=== PATIENT | female | born 1965 | race Caucasian/White ===

== ENCOUNTER → 2017-03-07 | Outpatient (CLI) | payer BC ==
[~2017-03-07] MED LIST: ASPI325T45 PO; CIPR-255 PO; FLNIN/ NAE; LEVO112T4 PO; LEVO125T5 PO; TRMCR130WC TOP
--- NOTE | 2017-03-07 13:27 | MAMMOGRAPHY REPORT ---
BILATERAL DIGITAL SCREENING MAMMOGRAM TOMOSYNTHESIS WITH CAD: 03/07/2017 CLINICAL HISTORY: Routine screening. Patient has no complaints. TECHNIQUE: Breast tomosynthesis in addition to standard 2D mammography was performed. Current study was also evaluated with a Computer Aided Detection (CAD) system. COMPARISON: Comparison is made to exams dated: 03/01/2016 mammogram and 02/20/2015 mammogram - [facility]. Also prior outside mammograms dated 12/28/2010 and 12/25/2009. BREAST COMPOSITION: There are scattered areas of fibroglandular density in both breasts. FINDINGS: No suspicious masses, calcifications, or areas of architectural distortion are noted in ei ther breast. There has been no significant interval change compared to prior exams. IMPRESSION: ACR BI-RADS CATEGORY 1: NEGATIVE There is no mammographic evidence of malignancy. A 1 year screening mammogram is recommended. The pa tient will receive written notification of the results. Approximately 10% of breast cancers are not detected with mammography. A negative mammographic report should not delay biopsy if a clinically suggestive mass is present. Nayely Pond M.D. ah/:03/07/2017 09:15:04 Inker Machine: Negro GARCIA(R)(M), [facility] letter sent: Normal 1/2 BI-RADS Code: ACR BI-RADS Category 1: Negative
== END | disposition home or self-care (01) ==
LOC: C.MAMM 08:34
PROVIDERS: ATTEND Family Medicine
DX: Z12.31 Encounter for screening mammogram for malignant neoplasm of breast (principal)

== ENCOUNTER 2017-04-28 18:34 | Emergency (ER) | payer BC ==
[~2017-04-28] VITALS: Ht 160 cm; Wt 76.0 kg
[~2017-04-28 18:34] MED LIST changes: -CIPR-255 PO; -FLNIN/ NAE; -LEVO125T5 PO; -TRMCR130WC TOP
[2017-04-28 18:35] VITALS: Ht 160 cm; Wt 76.0 kg
[2017-04-28] MEDS ORDERED: SODIUM CHLORIDE 0.9% 1000ML 1,000 ML IV STA (18:46)
[2017-04-28] MEDS ORDERED: ONDANSETRON 8 MG/54 ML D5W IV STA (18:55)
[2017-04-28] MEDS ORDERED: OPTIRAY 320 IV PRN (19:15)
[2017-04-28] MEDS ORDERED: LEVO125T4 PO (19:16)
[2017-04-28] MEDS ORDERED: TRMCR130WC TOP (19:16)
[2017-04-28] MEDS ORDERED: FLNIN/ NAE (19:16)
[2017-04-28] MEDS ORDERED: HYDROmorphone INJ 0.5 MG/0.5 ML SYR IV STA (19:32)
[2017-04-28 20:01] LABS: BASO % 0.3 %; BASO ABS # 0.02 K/uL (0-0.2); COMPLETE YES; EOS % 0.1 %; HEMATOCRIT 41.6 % (37-47); IG% 0.3 %; LYMPH % 20.9 %; MEAN CORPUSCULAR HGB CONC 34.4 g/dl (32-36); MEAN PLATELET VOLUME 9.8 fL (7.4-10.4); MONO % 4.3 %; NEUT % 74.1 %; PLATELET COUNT 276 K/uL (130-400); RED BLOOD COUNT 4.62 M/uL (4.2-5.4); WHITE BLOOD COUNT 7.18 K/uL (4.8-10.8)
[2017-04-28 20:08] LABS: URINE APPEARANCE CLOUDY (CLEAR); URINE BILIRUBIN NEG (NEG); URINE COLOR YELLOW; URINE NITRITE NEG (NEG); URINE SPECIFIC GRAVITY 1.016 (1.000-1.030); UROBILINOGEN NEG (NEG); ZZUR CULT IF INDIC CLEAN CATCH YES
[2017-04-28 20:09] LABS: MANUAL MICROSCOPIC REQUIRED? NO; REVIEW REQ? NO
[2017-04-28 20:18] LABS: BUN/CREATININE RATIO 15.6 (10-20); CALCIUM 9.9 mg/dl (8.5-10.1); CREATININE 0.83 mg/dl (0.60-1.20); POTASSIUM 3.9 mmol/L (3.5-5.1)
[2017-04-28 20:20] LABS: PREG INTERNAL NEGATIVE QC NEG CLEAR BACKGROUND; PREG INTERNAL POSITIVE QC POS CONTROL LINE
--- NOTE | 2017-04-28 21:06 | DIAGNOSTIC IMAGING REPORT ---
ABD/PELVIS IV CONTRAST ONLY CT DOSE: 324.98 mGy.cm HISTORY: Pain. Nausea. upper abd pain, vomiting TECHNIQUE: Multiaxial CT images of the abdomen and pelvis were performed following the use of intravenous contrast. A dose lowering technique was utilized adhering to the principles of ALARA. COMPARISON STUDY: None. FINDINGS: Lung bases are clear. Liver spleen and pancreas enhance uniformly. Kidneys negative for hydronephrosis. The bowel pattern is nonobstructive. Subtle wall edema of the colon with a trace amount of pericolonic infiltrative change. Suggests a low-grade colitis. There is no evidence for abscess collection or obstruction. Bladder is midline. There are several small reactive abdominal as well as inguinal nodes. Significant or bulky adenopathy is not appreciated. IMPRESSION: 1. Mild nonspecific colitis. 2. No evidence for abscess collection or obstruction. 3. Study is otherwise negative. 4. Normal appendix. The above report was generated using voice recognition software. It may contain grammatical, syntax or spelling errors. Electronically signed by: Serge Real M.D. 04/28/2017 9:05 PM Dictated Date/Time: 04/28/2017 9:02 PM
[2017-04-28] MEDS ORDERED: CIPROFLOXACIN 500 MG TAB PO STA (21:44)
[2017-04-28] MEDS ORDERED: OXYCODONE IR HOME PACK PO ONE (21:45)
[2017-04-28] MEDS ORDERED: ONDANSETRON HOME PACK 4MG OD TAB PO ONE (21:45)
[2017-04-28] MEDS ORDERED: KETOROLAC TROMETHAMINE 30 MG/ML VIAL IV STA (21:47)
[2017-04-28] MEDS ORDERED: CIPR-255 PO (21:50)
[2017-04-28 22:35] VITALS: BP 127/81; PULSE 67; TEMP 36.5; O2SAT 99
--- NOTE | 2017-04-29 00:57 | EMERGENCY ROOM VISIT NOTE ---
History Report prepared by Mahi: Jossie Ma Under the Supervision of: Dr. John Meadows M.D. First contact with patient: 18:42 Chief Complaint: ABDOMINAL PAIN Stated Complaint: VOMITING, ABDOMINAL PAIN Nursing Triage Summary: pt to the ED with c/o back and abd pain over the weekend with n/v and states she is having a gallbladder attack History of Present Illness The patient is a 51 year old female who presents to the Emergency Room with complaints of intermittent diffuse abdominal pain that began three days ago. She currently rates her discomfort as a 3/10 in severity. The patient states that on Friday she developed a dull right lower quadrant abdominal pain that persisted throughout the day, but was resolved once she went to bed. She states that yesterday she developed diffuse pain throughout her abdomen and back. The patient states that today she took three bites of her dinner and vomited. She states that she has had six episodes of emesis. The patient states that she must wear a bullet proof vest for work and states that she cannot wear that or her bra without pain. She states that she has been feeling fuzzy today and states that she had a difficult time driving home. The patient states that she becomes immediately nauseous upon eating or drinking. She additionally reports a headache and constipation. The patient also notes some dysuria but denies any flank pain. The patient states that over the past two days she has been feeling fatigued. She states that her pain is worsened with bending of the abdomen, but is alleviated with rest. The patient describes her pain as a pressure at this time. Pt denies LOC, fevers, chills, diaphoresis, visual changes, neck pain, chest pain, breathing difficulties, melena, hematochezia, numbness, weakness, lymphadenopathy, rash, or other complaints. Source of History: patient Onset: three days ago Position: abdomen (diffuse) Symptom Intensity: 3/10 Quality: pressure, dull Timing: intermittent Modifying Factors (Worsening): other (bending abdomen) Modifying Factors (Relieving): rest Associated Symptoms: + headache, + nausea, + vomiting, + fatigue Note: Associated Symptoms: feeling fuzzy, constipation Review of Systems See HPI for pertinent positives and negatives. A total of ten systems were reviewed and were otherwise negative. Past Medical & Surgical Medical Problems: (1) Graves' disease (2) Pure Hypercholesterolem Surgical Problems: (1) S/P JONO-BSO Family History Cancer Diabetes mellitus Gallbladder disease Heart disease Hypertension Lung disease Social History Smoking Status: Never Smoker Marital Status: Housing Status: lives with significant other Occupation Status: employed Current/Historical Medications Scheduled Ciprofloxacin Hcl (Cipro), 500 MG PO BID Fluticasone Propionate (Fluticasone Propionate), 2 SPRAYS IVÁN PRN Levothyroxine Sodium (Levothyroxine Sodium), 125 MCG PO DAILY Triamcinolone Acet (Aristocort 0.1%), 1 APPLN TOP PRN Allergies Coded Allergies: Amoxicillin (Verified Allergy, Severe, ITCHY, RASH, 04/28/17) Peanut-containing Drug Products (Verified Allergy, Unknown, RESP PROBLEMS FROM PEANUT BUTTER, 04/28/17) Physical Exam Vital Signs Date Time Temp Pulse Resp B/P (MAP) Pulse Ox O2 Delivery O2 Flow Rate FiO2 04/28/17 22:35 36.5 67 20 127/81 99 04/28/17 21:32 72 20 124/81 94 Room Air 04/28/17 20:28 48 04/28/17 19:50 56 20 121/77 98 Room Air 04/28/17 18:35 36.5 71 16 156/72 95 Room Air Physical Exam GENERAL: Awake, alert, well-appearing, in no distress HENT: Normocephalic, atraumatic. Oropharynx unremarkable. EYES: Normal conjunctiva. Sclera non-icteric. NECK: Supple. No nuchal rigidity. FROM. No JVD. RESPIRATORY: Clear to auscultation. CARDIAC: Regular rate, normal rhythm. Extremities warm and well perfused. Pulses equal. ABDOMEN: Soft, non-distended. Minimal right and left lower quadrant tenderness and moderate epigastric tenderness to palpation. No rebound or guarding. No masses. RECTAL: Deferred. MUSCULOSKELETAL: Chest examination reveals no tenderness. The back is symmetrical on inspection without obvious abnormality. There is no CVA tenderness to palpation. No joint edema. LOWER EXTREMITIES: Calves are equal size bilaterally and non-tender. No edema. No discoloration. NEURO: Normal sensorium. No sensory or motor deficits noted. SKIN: No rash or jaundice noted. Medical Decision & Procedures ER Provider Diagnostic Interpretation: CT: Radiology results as stated below per my review and radiologist interpretation ABD/PELVIS IV CONTRAST ONLY CT DOSE: 324.98 mGy.cm HISTORY: Pain. Nausea. upper abd pain, vomiting TECHNIQUE: Multiaxial CT images of the abdomen and pelvis were performed following the use of intravenous contrast. A dose lowering technique was utilized adhering to the principles of ALARA. COMPARISON STUDY: None. FINDINGS: Lung bases are clear. Liver spleen and pancreas enhance uniformly. Kidneys negative for hydronephrosis. The bowel pattern is nonobstructive. Subtle wall edema of the colon with a trace amount of pericolonic infiltrative change. Suggests a low-grade colitis. There is no evidence for abscess collection or obstruction. Bladder is midline. There are several small reactive abdominal as well as inguinal nodes. Significant or bulky adenopathy is not appreciated. IMPRESSION: 1. Mild nonspecific colitis. 2. No evidence for abscess collection or obstruction. 3. Study is otherwise negative. 4. Normal appendix. The above report was generated using voice recognition software. It may contain grammatical, syntax or spelling errors. Electronically signed by: Serge Real M.D. 04/28/2017 9:05 PM Dictated Date/Time: 04/28/2017 9:02 PM Laboratory Results 04/28/17 19:40 Red Blood Count 4.62, Mean Corpuscular Volume 90.0, Mean Corpuscular Hemoglobin 31.0, Mean Corpuscular Hemoglobin Concent 34.4, Mean Platelet Volume 9.8, Neutrophils (%) (Auto) 74.1, Lymphocytes (%) (Auto) 20.9, Monocytes (%) (Auto) 4.3, Eosinophils (%) (Auto) 0.1, Basophils (%) (Auto) 0.3, Neutrophils # (Auto) 5.32, Lymphocytes # (Auto) 1.50, Monocytes # (Auto) 0.31, Eosinophils # (Auto) 0.01, Basophils # (Auto) 0.02 04/28/17 19:40 Test 04/28/17 19:40 White Blood Count 7.18 K/uL (4.8-10.8) Red Blood Count 4.62 M/uL (4.2-5.4) Hemoglobin 14.3 g/dL (12.0-16.0) Hematocrit 41.6 % (37-47) Mean Corpuscular Volume 90.0 fL (80-100) Mean Corpuscular Hemoglobin 31.0 pg (25-34) Mean Corpuscular Hemoglobin Concent 34.4 g/dl (32-36) Platelet Count 276 K/uL (130-400) Mean Platelet Volume 9.8 fL (7.4-10.4) Neutrophils (%) (Auto) 74.1 % Lymphocytes (%) (Auto) 20.9 % Monocytes (%) (Auto) 4.3 % Eosinophils (%) (Auto) 0.1 % Basophils (%) (Auto) 0.3 % Neutrophils # (Auto) 5.32 K/uL (1.4-6.5) Lymphocytes # (Auto) 1.50 K/uL (1.2-3.4) Monocytes # (Auto) 0.31 K/uL (0.11-0.59) Eosinophils # (Auto) 0.01 K/uL (0-0.5) Basophils # (Auto) 0.02 K/uL (0-0.2) RDW Standard Deviation 42.3 fL (36.4-46.3) RDW Coefficient of Variation 12.8 % (11.5-14.5) Immature Granulocyte % (Auto) 0.3 % Immature Granulocyte # (Auto) 0.02 K/uL (0.00-0.02) Urine Color YELLOW Urine Appearance CLOUDY (CLEAR) Urine pH 8.0 (4.5-7.5) Urine Specific [place] 1.016 (1.000-1.030) Urine Protein NEG (NEG) Urine Glucose (UA) NEG (NEG) Urine Ketones NEG (NEG) Urine Occult Blood 1+ (NEG) Urine Nitrite NEG (NEG) Urine Bilirubin NEG (NEG) Urine Urobilinogen NEG (NEG) Urine Leukocyte Esterase MODERATE (NEG) Urine WBC (Auto) 10-30 /hpf (0-5) Urine RBC (Auto) 10-30 /hpf (0-4) Urine Hyaline Casts (Auto) 1-5 /lpf (0-5) Urine Epithelial Cells (Auto) 5-10 /lpf (0-5) Urine Bacteria (Auto) 2+ (NEG) Anion Gap 8.0 mmol/L (3-11) Est Creatinine Clear Calc Drug Dose 77.4 ml/min Estimated GFR () 94.0 Estimated GFR (Non- 81.1 BUN/Creatinine Ratio 15.6 (10-20) Calcium Level 9.9 mg/dl (8.5-10.1) Total Bilirubin 0.5 mg/dl (0.2-1) Direct Bilirubin 0.1 mg/dl (0-0.2) Aspartate Amino Transf (AST/SGOT) 30 U/L (15-37) Alanine Aminotransferase (ALT/SGPT) 67 U/L (12-78) Alkaline Phosphatase 107 U/L (45-117) Total Protein 8.0 gm/dl (6.4-8.2) Albumin 4.2 gm/dl (3.4-5.0) Lipase 101 U/L (73-393) Human Chorionic Gonadotropin, Qual NEG (NEG) Laboratory results reviewed by me Medications Administered Medications (Trade) Dose Ordered Sig/Steven Route Start Time Stop Time Status Last Admin Dose Admin Sodium Chloride 1,000 ml @ 999 mls/hr Q1H1M STAT IV 04/28/17 18:46 04/28/17 19:46 DC 04/28/17 19:49 999 MLS/HR Ondansetron HCl (Zofran 8mg Iv) 8 mg NOW STAT IV 04/28/17 18:55 04/28/17 18:57 DC 04/28/17 19:49 8 MG Hydromorphone HCl (Dilaudid Inj) 0.5 mg NOW STAT IV 04/28/17 19:32 04/28/17 19:33 DC 04/28/17 19:32 0.5 MG Ciprofloxacin (Cipro Tab) 500 mg NOW STAT PO 04/28/17 21:44 04/28/17 21:47 DC 04/28/17 22:01 500 MG Ondansetron HCl (ZOFRAN ODT 4MG Home Pack) 1 homepack UD ONCE PO 04/28/17 21:45 04/28/17 21:47 DC 04/28/17 22:02 1 HOMEPACK Oxycodone HCl (Roxicodone Immediate Rel 5MG Home Pack) 1 homepack UD ONCE PO 04/28/17 21:45 04/28/17 21:47 DC 04/28/17 22:02 1 HOMEPACK Ketorolac Tromethamine (Toradol Inj) 30 mg NOW STAT IV 04/28/17 21:47 04/28/17 21:48 DC 04/28/17 22:01 30 MG ED Course 1843: The patient was evaluated in room B3B. A complete history and physical exam was performed by the medical student. 1845: Ordered Sodium Chloride 1000 ml @ 999 mls/hr IV. 1854: Ordered Zofran 8 mg IV. 1903: The patient was evaluated in room B3B. A complete history and physical exam was performed. 1931: Ordered Dilaudid Inj 0.5 mg IV. 2141: I reevaluated the patient and she is resting comfortably. I discussed the exam findings with her and I discussed the treatment plan. She verbalized complete understanding and agreement. She is ready to go home shortly. 2143: Ordered Cipro Tab 500 mg PO, Oxycodone HCl 1 homepack PO, Ondansetron HCl 1 homepack PO. 2146: Ordered Toradol Inj 30 mg IV. Medical Decision Medication Reconciliation: I attest that I have personally reviewed the patient' s current medication list Blood pressure screening: Patient was found to have an elevated blood pressure and was referred to their primary doctor for recheck and further treatment. Triage Nursing notes reviewed. The patient's presentation and history were concerning for abdominal pain. Etiologies such as appendicitis, diverticulitis, obstruction, inflammatory bowel disease, renal colic, PUD, biliary pathology, pancreatitis, mesenteric ischemia, aortic pathology, infections, genitourinary, UTI, perforated viscus, as well as others were entertained. Pain was evaluated. She was hydrated. She is given Zofran and a dose of Dilaudid. She felt significantly better with this. Her blood work was unremarkable. Urine test was concerning for infection. She was started on Cipro for this. CT imaging revealed a colitis although it was mild. The patient is doing well. She will be followed up closely as an outpatient. She has an appointment tomorrow with her primary physician. She will continue Cipro for the urinary tract infection and she will discuss further management with her primary physician. She may need GI referral if things do not clear up. She worsens in any way she will be back. I gave my usual and customary discussion regarding this issue. By the evaluation outlined above other emergent etiologies such as those listed in the differential, as well as others, were deemed relatively unlikely. The patient was educated about the findings as listed above. All questions were answered and the patient was pleased with the treatment. Return instructions were outlined and the patient was discharged in stable condition. The patient was referred to her PCP for follow-up for a recheck of the current condition. Impression Primary Impression: Colitis Additional Impressions: Generalized abdominal pain UTI (urinary tract infection) Scribe Attestation The scribe's documentation has been prepared under my direction and personally reviewed by me in its entirety. I confirm that the note above accurately reflects all work, treatment, procedures, and medical decision making performed by me. Departure Information Dispostion Home / Self-Care Prescriptions Ciprofloxacin Hcl (CIPRO) 500 Mg Tab 500 MG PO BID, #6 TAB Prov: John Meadows MD 04/28/17 Referrals Jerry Renee M.D. (PCP) Forms Call Back Authorization, HOME CARE DOCUMENTATION FORM, IMPORTANT VISIT INFORMATION Patient Instructions My [facility] Additional Instructions Diagnoses: 1. Colitis 2. UTI DO NOT drive, drink alcohol, operate machinery, or perform dangerous activities today. You were given medications in the ER that can affect your ability to safely function or operate a vehicle. Zofran 4 mg oral dissolving tablets: take one tablet and allow it to melt in your mouth every 4 hours as needed for nausea. Ciprofloxacin 500mg: Take one pill twice daily for 3 days for your infection. All antibiotics can cause diarrhea. If this occurs and you feel worse or it does not resolve in 1-2 days follow up with your doctor or return to the Emergency Department as this could be signs of serious underlying problems. Any medication can cause an allergic reaction or complication, stop the pills immediately and return to the ER for rash, hives, breathing difficulties, tendon pain, tendon injury, or swelling. Oxycodone (OxyIR) 5mg: Take 1-2 pills every four hours for breakthrough pain. Avoid alcohol, operating machinery or dangerous equipment, working on ladders or roofs, DRIVING, or situations where being under the influence may be dangerous. It is recommended to use an lymu-dgc-[id number] stool softener such as Colace, 100mg twice daily while taking this medication to avoid constipation. Review the package insert for all your medications. This is necessary as important health information is provided for your benefit and current care. Ibuprofen(Motrin, Advil) may be used for fever or pain. Use 600mg every six hours as needed. Take with food. Avoid using more than 2400mg in a 24 hour period. Do not use 2400mg per day for more than three consecutive days without physician direction. Prolonged inappropriate use can lead to stomach upset or ulcers. (AND/OR) Acetaminophen(Tylenol) may be used for fever or pain. Use 1000mg every six hours as needed. Avoid using more than 4000mg in a 24 hour period. Rest and drink plenty of fluids as tolerated. Slow sips of water or sports drinks are recommended instead of large amounts all at once. Continue current medications. Once your stomach is settled start with a clear liquid diet (jello, soup broth, etc.) and then advance as tolerated. You should avoid full, heavy meals for about 24 hrs from the time your symptoms resolved. Return to the ER immediately for worsening or persistent abdominal pain, vomiting, fevers, chest pains, difficulty breathing, black or bloody stools, worsening of your condition, or as needed. Follow up with your primary physician this week as scheduled for a recheck of your current condition. Problem Qualifiers
== END 2017-04-28 22:36 | disposition home or self-care (01) ==
LOC: C.EDB 18:35
DX: K52.9 Noninfective gastroenteritis and colitis, unspecified (principal); R10.84 Generalized abdominal pain; N39.0 Urinary tract infection, site not specified; Z90.710 Acquired absence of both cervix and uterus; Z90.722 Acquired absence of ovaries, bilateral; Z90.79 Acquired absence of other genital organ(s); Z83.3 Family history of diabetes mellitus; Z82.49 Family history of ischemic heart disease and other diseases of the circulatory system

== ENCOUNTER → 2017-07-15 | Outpatient (CLI) | payer BC ==
[~2017-07-15] MED LIST changes: -ASPI325T45 PO; +CIPR-255 PO; +FLNIN/ NAE; -LEVO112T4 PO; +LEVO125T4 PO; +SINCALIDE INJ 1.4 MCG in SODIUM CHLORIDE 0.9% 100ML 100 ML IV ONE; +TRMCR130WC TOP
--- NOTE | 2017-07-15 10:23 | DIAGNOSTIC IMAGING REPORT ---
NUCLEAR MEDICINE HEPATIC BILIARY SCAN WITH EJECTION FRACTION ANALYSIS CLINICAL HISTORY: RUQ PAIN COMPARISON STUDY: CT scan dated 04/28/2017 FINDINGS: The patient was injected with 5.5 mCi of technetium 99m Choletec. Hepatic excretion appears unremarkable. There is normal passage of activity into small bowel. The gallbladder is first visualized on the 25 minute image. At 1 hour, the patient was administered 1.4 mcg of intravenous sincalide utilizing a 30 minute infusion. The gallbladder ejection fraction was normal measuring 90%. IMPRESSION: Normal study. No evidence of cystic duct obstruction. Normal gallbladder ejection fraction of 90%. Electronically signed by: Maninder Calhoun M.D. 07/15/2017 10:22 AM Dictated Date/Time: 07/15/2017 10:17 AM
== END | disposition home or self-care (01) ==
LOC: C.NUCL 07:41
PROVIDERS: ATTEND Nurse Practitioner
DX: R10.11 Right upper quadrant pain (principal)